=== PATIENT | male | born 1995 | race Two or more races ===

== ENCOUNTER 2022-12-23 03:44 | Emergency (ER) | payer OTHER ==
[~2022-12-23] VITALS: Ht 172.7 cm; Wt 90.7 kg
== END 2022-12-23 12:00 | disposition designated cancer center or children's hospital (05) ==
LOC: ER 03:44
DX: S41.042A Puncture wound with foreign body of left shoulder, initial encounter (principal); X95.8XXA Assault by other firearm discharge, initial encounter; Y93.9 Activity, unspecified; Y92.89 Other specified places as the place of occurrence of the external cause; Y99.8 Other external cause status; R06.03 Acute respiratory distress; J94.2 Hemothorax; Z91.013 Allergy to seafood; Z20.822 Contact with and (suspected) exposure to COVID-19